=== PATIENT | male | born 1975 | race Caucasian/White ===

== ENCOUNTER 2020-01-21 09:49 | Emergency (ER) | payer BC, SELFPAY ==
[2020-01-21 09:57] VITALS: BP 145/95; PULSE 103; RESP 18; TEMP 36.4; O2SAT 97
--- NOTE | 2020-01-21 10:01 | DI.RAD.S_ITS ---
PROCEDURE: XR CHEST 2V INDICATIONS: SOB, hx asthma TECHNIQUE: 2 views of the chest were acquired. COMPARISON: None. FINDINGS: Surgical changes and devices: None. Lungs and pleura: Lungs are clear. No pleural effusions or pneumothorax. Mediastinum: Mediastinal contours are normal. Heart size is normal. Bones and chest wall: No suspicious bony abnormalities. Soft tissues appear unremarkable. IMPRESSION: No evidence acute pulmonary process. Dictated by: Jesse Solares M.D. on 01/21/2020 at 10:19 Approved by: Jesse Solares M.D. on 01/21/2020 at 10:19
--- NOTE | 2020-01-21 10:03 | ED.CHESTPAIN ---
HPI - Chest Pain General Chief Complaint: Asthma Stated Complaint: mold exposure/chest pain/asthma Time Seen by Provider: 01/21/20 09:50 Source: patient Mode of arrival: Ambulatory Limitations: no limitations History of Present Illness HPI narrative: 44-year-old male nonsmoker with history of asthma presents with difficulty breathing, wheezing and some episodes of anterior chest pressure over the past few days. He states that his home was just evaluated and they found bold and definitive Spore counts which are likely triggering his symptoms. He denies any fever or chills nor runny nose, sore throat or headache. He has had no nausea, vomiting or diarrhea. He has had no rash. He has been using more bronchodilators than normal. The mold in his home is being addressed tomorrow and he will be standing in a hotel until it is taking care. He denies any exposure to persons known or suggested to have COVID-19. The episodes of chest pressure are short induration and have no provocation, palliation or radiation. He denies any cardiac history nor recent travel, history of clots or lower extremity pain or swelling. MD complaint: chest pain Onset (ago): day(s) Duration: intermittent Onset: during rest Pain location: left chest Quality: tightness Pain radiation: none Relieving factors: nothing Exacerbating factors: nothing Associated symptoms: dyspnea Treatments prior to arrival chest pain: none Related Data Home Medications Medication Instructions Recorded Confirmed albuterol sulfate 90 mcg/actuation 2 puff INHALATION SEE INSTRUCTIONS 07/19/19 07/19/19 aerosol inhaler PRN beclomethasone dipropionate 80 See Rx Instructions INHALATION 07/19/19 07/19/19 mcg/actuation aerosol inhaler DAILY inhalation fluticasone furoate 27.5 1 spray NASAL DAILY 07/19/19 07/19/19 mcg/actuation nasal spray,suspension Previous Rx's Medication Instructions Recorded azelastine 137 mcg (0.1 %) nasal 1 spray NASAL BID #30 ml 07/19/19 spray aerosol montelukast 10 mg tablet 10 mg PO BEDTIME #30 tab 07/19/19 propranolol 20 mg tablet See Rx Instructions PO TID PRN #10 07/19/19 tab triamcinolone acetonide 0.1 % 1 applictn TOP DAILY #30 gram 12/30/19 topical ointment prednisone See Rx Instructions .ROUTE 01/21/20 .COMPLEX #30 tab Allergies Allergy/AdvReac Type Severity Reaction Status Date / Time No Known Drug Allergies Allergy Verified 07/19/19 09:38 Review of Systems Constitutional Constitutional: Denies chills, Denies fatigue, Denies fever(s), Denies frequent falls, Denies lethargy and Denies weakness Eyes Eyes: Denies change in vision, Denies eye discharge, Denies irritation and Denies loss of vision ENT Ears, Nose, Mouth, and Throat: Denies change in voice, Denies dizziness, Denies neck pain, Denies sore throat and Denies throat swelling Cardiovascular Cardiovascular: Reports chest pain, Denies irregular heart rhythm, Denies lightheadedness, Denies palpitations, Reports dyspnea, Denies dyspnea on exertion and Denies orthopnea Respiratory Respiratory: Denies cough, Reports dyspnea, Denies dyspnea on exertion and Denies wheezing Gastrointestinal Gastrointestinal: Denies abdominal pain, Denies change in bowel habits, Denies diarrhea, Denies nausea and Denies vomiting Genitourinary Genitourinary: Denies hematuria, Denies flank pain, Denies urinary incontinence and Denies urinary urgency Musculoskeletal Musculoskeletal: Denies back pain, Denies muscle weakness, Denies neck pain, Denies numbness and Denies tingling Integumentary/Breasts Skin/Breast: Denies pruritus, Denies erythema, Denies rash and Denies wounds Neurologic Neurologic: Denies behavioral changes, Denies confusion, Denies dizziness, Denies frequent falls, Denies loss of vision, Denies numbness, Denies tingling and Denies weakness Psychiatric Psychiatric: Denies anxiety, Denies behavioral changes, Denies confusion, Denies depression, Denies homicidal ideation and Denies suicidal ideation Endocrine Endocrine: Denies fatigue, Denies flushing and Denies palpitations Hematologic/Lymphatic Hematologic/Lymphatic: Denies easy bruising Allergic/Immunologic Allergic/Immunologic: Denies urticaria, Denies throat swelling and Denies wheezing Patient History Medical History Anxiety (Chronic) Asthma (Resolved) Eczema (Chronic ~2015) Paroxysmal A-fib (Chronic ~2018) Sleep apnea (Chronic ~2018) Unspecified asthma, uncomplicated (Chronic) Surgical History Anesthesia (Resolved) History of foot surgery (Resolved ~2010) S/P appy (Acute) Family History Grandfather Cancer Grandfather Myocardial infarct History of heart disease Grandmother No problems noted. Family/Other No problems noted. Social History Smoking Status: Never smoker Smoking Status: Never smoker Exam Narrative Exam Narrative: GENERAL: [44] year old patient appears stated age. Well-nourished, well-developed patient, in mild distress. Anxious. HEAD: Atraumatic. Normocephalic. EYES: Pupils equal round and reactive. Extraocular motions intact. No scleral icterus. No injection or drainage. ENT: Nose without bleeding, purulent drainage. Throat without erythema, tonsillar hypertrophy or exudate. Airway patent. NECK: Trachea midline. Non tender CARDIOVASCULAR: Regular rate and rhythm without murmurs, gallops, or rubs. RESPIRATORY: Clear to auscultation. Breath sounds equal bilaterally. No wheezes, rales, or rhonchi. GASTROINTESTINAL: Abdomen soft, non-tender, nondistended. EXTREMITIES: No edema or joint tenderness. BACK: Nontender without deformity or crepitance. No flank tenderness. NEURO: AOx3. SKIN: No rash or erythema of visible areas Initial Vital Signs Initial Vital Signs: Vital Signs Temperature 97.6 F 01/21/20 09:57 Pulse Rate 103 H 01/21/20 09:57 Respiratory Rate 18 01/21/20 09:57 Blood Pressure 145/95 H 01/21/20 09:57 Pulse Oximetry 97 01/21/20 09:57 Course Orders Ordered: ED Orders 01/21/20 10:01 XR chest 2V Stat EKG-12 Lead Stat 01/21/20 10:16 Basic Metabolic Panel Stat Complete Blood Count AUTO DIFF Stat Troponin & CK Cardiac Panel Stat 01/21/20 12:15 Troponin I Stat Discontinued Medications Prednisone (Deltasone) 40 mg PO NOW ONE Stop: 01/21/20 10:01 Last Admin: 01/21/20 10:21 Dose: 40 mg Documented by: NIVIA Vital Signs Vital signs: Vital Signs - 8 hr 01/21/20 09:57 01/21/20 11:13 01/21/20 12:19 Temperature 97.6 F Pulse Rate 103 H 84 72 Respiratory Rate 18 14 18 Blood Pressure 145/95 H Blood Pressure [Right Arm] 121/76 121/76 Pulse Oximetry 97 95 99 MDM - Chest Pain Lab Data Result diagrams: 01/21/20 10:16 01/21/20 10:16 Labs: Lab Results 01/21/20 01/21/20 01/21/20 Range/Units 10:16 10:16 12:15 WBC 6.8 (4.5-11.0) X10^3/uL RBC 5.07 (4.5-5.9) X10^6/uL Hgb 15.0 (13.5-17.5) g/dL Hct 44.5 (41-53) % MCV 87.7 (80-100) fL MCH 29.6 (26-34) PG MCHC 33.7 (30-36) % RDW 13.4 (11.6-14.8) % Plt Count 295 (150-400) X10^3/uL Neut % (Auto) 64.3 (50-75) % Lymph % (Auto) 28.1 (25-40) % [place] % (Auto) 5.9 (3-14) % Eos % (Auto) 0.4 L (2-4) % Baso % (Auto) 1.3 (0-2) % Neut # (Auto) 4400 (8404-6042) /uL Lymph # (Auto) 1900 (0953-5142) /uL [place] # (Auto) 400 (0-900) /uL Eos # (Auto) 0 (0-450) /uL Baso # (Auto) 100 (0-100) /uL Sodium 138 (137-145) mmol/L Potassium 3.9 (3.4-5.1) mmol/L Chloride 104 (98-107) mmol/L Carbon Dioxide 25 (22-32) mmol/L BUN 15 (9-20) mg/dL Creatinine 0.80 (0.66-1.25) mg/dL Estimated GFR > 60.0 (>60) mL/min BUN/Creatinine Ratio 18.8 (6-22) Glucose 112 H (70-100) mg/dL Calcium 9.7 (8.4-10.2) mg/dL Total Creatine Kinase 205 H (55-170) U/L CK-MB (CK-2) 1.04 (<2.37) ng/mL CK-MB (CK-2) Rel Index 0.5 L (1.5-5.0) % Troponin I < 0.012 < 0.012 (0.01-0.034) ng/mL Imaging Data Chest x-ray: Radiologist's Impression: [address] [address] XRay Report Signed Patient: Jules Flores RMR#: [id number] : 1975Acct:[id number] Age/Sex: 44 / MDate of Service: 01/21/20 Loc: ED Accession Number: [id number] Procedure: XR chest 2V Ordering Provider: Sharad Malagon D.O. PROCEDURE: XR CHEST 2V INDICATIONS: SOB, hx asthma TECHNIQUE: 2 views of the chest were acquired. COMPARISON: None. FINDINGS: Surgical changes and devices: None. Lungs and pleura: Lungs are clear. No pleural effusions or pneumothorax. Mediastinum: Mediastinal contours are normal. Heart size is normal. Bones and chest wall: No suspicious bony abnormalities. Soft tissues appear unremarkable. IMPRESSION: No evidence acute pulmonary process. Dictated by: Jesse Solares M.D. on 01/21/2020 at 10:19 Approved by: Jesse Solares M.D. on 01/21/2020 at 10:19 [facility] [place] Narrative Medical decision making narrative: Multiple causes of chest pain considered including NM, PE, pneumothorax, pneumonia, aortic dissection, and pleurisy. Patient reports no radiation, no diaphoresis, no provocation with exertion, and no vomiting Patient's symptoms improved or duration of stay with above-stated therapies. Findings and discharge diagnosis discussed with patient/family followed by verbalization of understanding Return precautions discussed with patient/family whom verbalize understanding. Discharge Plan Departure Patient Disposition: Home Clinical Impression: Atypical chest pain Asthma exacerbation Qualifiers: Asthma severity: mild Asthma persistence: intermittent Qualified Code(s): J45.21 - Mild intermittent asthma with (acute) exacerbation Discharge Date/Time: 01/21/20 13:11 Instructions: DI for Asthma -- Adult Activity Restrictions/Additional Instructions: *You have been diagnosed with [asthma exacerbation, atypical chest pain] *What to do: *Take medications as directed *Follow up with your primary care provider in 2-3 days, call for an appointment. Let them know you were seen in the Emergency Department and that we ask that you be seen in follow up *Return to ER if you should have any new, worsening or concerning symptoms Prescriptions: New prednisone 10 mg tablet See Rx Instructions .ROUTE .COMPLEX Qty: 30 RF: 0 No Action triamcinolone acetonide 0.1 % ointment 1 applictn TOP DAILY Qty: 30 RF: 2 Qvar 80 mcg/actuation aerosol See Rx Instructions inhalation DAILY RF: 0 albuterol sulfate [Proventil HFA] 90 mcg/actuation HFA aerosol inhaler 2 puff inhalation SEE INSTRUCTIONS PRN (Reason: shortness of breath) RF: 0 fluticasone furoate 27.5 mcg/actuation spray,suspension 1 spray NASAL DAILY RF: 0 montelukast 10 mg tablet 10 mg PO BEDTIME Qty: 30 RF: 3 azelastine 137 mcg (0.1 %) aerosol,spray 1 spray NASAL BID Qty: 30 RF: 3 propranolol 20 mg tablet See Rx Instructions PO TID PRN (Reason: anxiety) Qty: 10 RF: 0 Referrals: Viktor Rey MD [Primary Care Provider] -
--- NOTE | 2020-01-21 10:03 | PC.NURSE ---
Patient has had confirmed mold exposure in home, starting remediation in home tomorrow. Patient will be staying in a [place] tonight with family. patient has increased his use of inhalers and nebulizers
[2020-01-21] MEDS: predniSONE 20 MG TABLET 40 MG PO (10:21)
[2020-01-21 10:25] LABS: Add Manual Diff / Slide Review NO; Basophils Absolute Auto 100 /uL (0-100); Basophils Percent Auto 1.3 % (0-2); Eosinophils Absolute Auto 0 /uL (0-450); Eosinophils Percent Auto 0.4 % (2-4); Hematocrit 44.5 % (41-53); Lymphocytes Absolute Auto 1900 /uL (1100-4500); Lymphocytes Percent Auto 28.1 % (25-40); Mean Corpuscular HGB Conc 33.7 % (30-36); Mean Corpuscular Hemoglobin 29.6 PG (26-34); Mean Corpuscular Volume 87.7 fL (80-100); Monocytes Absolute Auto 400 /uL (0-900); Monocytes Percent Auto 5.9 % (3-14); Neutrophils Absolute Auto 4400 /uL (1500-7000); Neutrophils Percent Auto 64.3 % (50-75); Platelet Count 295 X10^3/uL (150-400); Red Blood Cell Count 5.07 X10^6/uL (4.5-5.9); Red Cell Distribution Width 13.4 % (11.6-14.8); White Blood Cell Count 6.8 X10^3/uL (4.5-11.0)
[2020-01-21 11:04] LABS: BUN Creatinine Ratio 18.8 (6-22); Blood Urea Nitrogen 15 mg/dL (9-20); Calcium 9.7 mg/dL (8.4-10.2); Carbon Dioxide 25 mmol/L (22-32); Chloride 104 mmol/L (98-107); Creatine Kinase 205 U/L (55-170); Estimated Glomerular Filt Rate > 60.0 mL/min (>60); Glucose 112 mg/dL (70-100); HEMOLYSIS < 15 (0-50); Potassium 3.9 mmol/L (3.4-5.1); Sodium 138 mmol/L (137-145)
[2020-01-21 11:13] VITALS: BP 121/76; PULSE 84; RESP 14; O2SAT 95
[2020-01-21 11:16] LABS: Troponin I < 0.012 ng/mL (0.01-0.034)
[2020-01-21 11:19] LABS: CKMB % Relative Index 0.5 % (1.5-5.0); Creatine Kinase MB 1.04 ng/mL (<2.37)
[2020-01-21 12:19] VITALS: BP 121/76; PULSE 72; RESP 18; O2SAT 99
[2020-01-21 12:50] LABS: Troponin I < 0.012 ng/mL (0.01-0.034)
== END 2020-01-21 13:11 | disposition home or self-care (01) ==
PROVIDERS: Emergency Provider Emergency Medicine; PCP Internal Medicine
DX: R07.89 Other chest pain (principal); J45.21 Mild intermittent asthma with (acute) exacerbation
CPT/HCPCS: 36415; 71046; 80048; 82550; 82553; 84484; 85025; 93005; 99284

== ENCOUNTER 2020-06-22 09:31 | Emergency (ER) | payer BC, SELFPAY ==
[2020-06-22 09:35] VITALS: BP 135/81; PULSE 170; RESP 24; TEMP 36.6; O2SAT 100
[2020-06-22 09:37] VITALS: PULSE 169; RESP 19; O2SAT 100
[2020-06-22 09:43] VITALS: BP 116/68; PULSE 89; RESP 23; O2SAT 100
[2020-06-22 09:45] VITALS: BP 113/66; PULSE 96; RESP 21; O2SAT 99
--- NOTE | 2020-06-22 09:48 | DI.RAD.S_ITS ---
PROCEDURE: XR CHEST 1V INDICATIONS: chest pain TECHNIQUE: One view of the chest was acquired. COMPARISON: [facility], CR, XR CHEST 2V, 01/21/2020, 9:02. FINDINGS: Surgical changes and devices: None. Lungs and pleura: On this semiupright portable chest examination, no large pneumothorax or large pleural effusions are seen. No focal infiltrates are seen. Mediastinum: Mediastinal contours appear normal. Heart size is normal. Bones and chest wall: No suspicious bony lesions. Overlying soft tissues appear unremarkable. IMPRESSION: Portable chest within normal limits. Dictated by: Juan Jose Will M.D. on 06/22/2020 at 9:14 Approved by: Juan Jose Will M.D. on 06/22/2020 at 9:14
[2020-06-22 09:53] LABS: Add Manual Diff / Slide Review NO; Basophils Absolute Auto 0 /uL (0-100); Basophils Percent Auto 0.5 % (0-2); Eosinophils Absolute Auto 200 /uL (0-450); Eosinophils Percent Auto 1.9 % (2-4); Hematocrit 44.7 % (41-53); Hemoglobin 15.1 g/dL (13.5-17.5); Lymphocytes Absolute Auto 3200 /uL (1100-4500); Lymphocytes Percent Auto 33.4 % (25-40); Mean Corpuscular HGB Conc 33.8 % (30-36); Mean Corpuscular Hemoglobin 29.6 PG (26-34); Mean Corpuscular Volume 87.6 fL (80-100); Monocytes Absolute Auto 700 /uL (0-900); Monocytes Percent Auto 7.7 % (3-14); Neutrophils Absolute Auto 5400 /uL (1500-7000); Neutrophils Percent Auto 56.5 % (50-75); Platelet Count 309 X10^3/uL (150-400); Red Cell Distribution Width 13.5 % (11.6-14.8); White Blood Cell Count 9.5 X10^3/uL (4.5-11.0)
--- NOTE | 2020-06-22 09:57 | ED_ITS ---
HPI - Arrhythmia/Palpitations General Chief Complaint: Arrhythmia/Palpitations Stated Complaint: afib emergency Time Seen by Provider: 06/22/20 09:37 Source: patient Mode of arrival: Ambulatory Limitations: no limitations History of Present Illness HPI narrative: Patient is a 45-year-old male who presents with heart palpitations. He has history of atrial fibrillation and was cardioverted 2 years ago. Today he started feeling palpitations about 915 and came to the ER for evaluation he appears to be in SVT on the monitor with a heart rate at 167. He denies any shortness of breath dizziness or lightheadedness Related Data Home Medications Medication Instructions Recorded Confirmed albuterol sulfate 90 mcg/actuation 2 puff INHALATION SEE INSTRUCTIONS 07/19/19 07/19/19 aerosol inhaler PRN beclomethasone dipropionate 80 See Rx Instructions INHALATION 07/19/19 07/19/19 mcg/actuation aerosol inhaler DAILY inhalation fluticasone furoate 27.5 1 spray NASAL DAILY 07/19/19 07/19/19 mcg/actuation nasal spray,suspension Previous Rx's Medication Instructions Recorded azelastine 137 mcg (0.1 %) nasal 1 spray NASAL BID #30 ml 07/19/19 spray aerosol montelukast 10 mg tablet 10 mg PO BEDTIME #30 tab 07/19/19 propranolol 20 mg tablet See Rx Instructions PO TID PRN #10 07/19/19 tab triamcinolone acetonide 0.1 % 1 applictn TOP DAILY #30 gram 12/30/19 topical ointment prednisone See Rx Instructions .ROUTE 01/21/20 .COMPLEX #30 tab Allergies Allergy/AdvReac Type Severity Reaction Status Date / Time No Known Drug Allergies Allergy Verified 07/19/19 09:38 Review of Systems Review of Systems Narrative: GENERAL: Denies chills, fatigue, malaise, fever, sweats, travel HEENT: Denies sinus pain, ear pain, sore throat, difficulty swallowing, neck pain RESPIRATORY: Denies dyspnea, cough, wheezing, hemoptysis, sputum. CARDIOVASCULAR: See HPI GASTROINTESTINAL: Denies nausea, vomiting, abdominal pain, diarrhea, constipation, melena. : Denies dysuria, frequency, incontinence, hematuria, urinary retention, flank pain. MUSCULOSKELETAL: Denies weakness, joint pain, or bony pain SKIN: No rash, no erythema, no pruritus NEUROLOGIC: Denies weakness, dizziness, headache, numbness, change in speech, confusion PSYCHIATRIC: No concerning psychosocial issues. 12 point review of systems is negative except for those stated above and HPI Patient History Medical History (Updated 06/22/20 @ 10:16 by Mahsa Delatorre DO) Anxiety (Chronic) Asthma (Resolved) Eczema (Chronic ~2015) Paroxysmal A-fib (Chronic ~2018) Sleep apnea (Chronic ~2018) Unspecified asthma, uncomplicated (Chronic) Surgical History Anesthesia (Resolved) History of foot surgery (Resolved ~2010) S/P appy (Acute) Family History Grandfather Cancer Grandfather Myocardial infarct History of heart disease Grandmother No problems noted. Family/Other No problems noted. Social History Smoking Status: Never smoker Smoking Status: Never smoker Substance Use Type: does not use Exam Initial Vital Signs Initial Vital Signs: Vital Signs Temperature 97.9 F 06/22/20 09:35 Pulse Rate 170 H 06/22/20 09:35 Respiratory Rate 24 06/22/20 09:35 Blood Pressure 135/81 06/22/20 09:35 Pulse Oximetry 100 06/22/20 09:35 GENERAL: Well-appearing, well-nourished and in no acute distress. HEENT: Head atraumatic,EOMI, pupils reactive, face symmetric, moist mucous membranes CARDIOVASCULAR: Tachycardic regular no murmur RESPIRATORY: Breath sounds equal bilaterally, no wheezes rales or rhonchi. ABDOMEN: Soft, nontender. Normoactive bowel sounds all 4 quadrants. No guarding or rebound. EXTREMITIES: Normal range of motion, no clubbing or edema. Neurovascularly intact NEUROLOGICAL: Alert and oriented x4.Normal gait and speech. SKIN: Warm, dry, no laceration, no petechiae, no rashes or lesions. Course Orders Ordered: ED Orders 06/22/20 09:44 Complete Blood Count AUTO DIFF Stat Comprehensive Metabolic Panel Stat Magnesium Stat Troponin & CK Cardiac Panel Stat 06/22/20 09:48 XR chest 1V Stat EKG-12 Lead Stat Vital Signs Vital signs: Vital Signs - 8 hr 06/22/20 09:35 06/22/20 09:37 06/22/20 09:43 Temperature 97.9 F Pulse Rate 170 H 169 H 89 Respiratory Rate 24 19 23 Blood Pressure 135/81 116/68 Pulse Oximetry 100 100 100 06/22/20 09:45 06/22/20 10:00 06/22/20 10:15 Temperature Pulse Rate 96 H 87 90 Respiratory Rate 21 20 21 Blood Pressure 113/66 110/68 Pulse Oximetry 99 95 96 MDM - Arrhythmia/Palpitations Lab Data Attestation: I reviewed the patient's lab results. Result diagrams: 06/22/20 09:44 06/22/20 09:44 Labs: Lab Results 06/22/20 06/22/20 Range/Units 09:44 09:44 WBC 9.5 (4.5-11.0) X10^3/uL RBC 5.10 (4.5-5.9) X10^6/uL Hgb 15.1 (13.5-17.5) g/dL Hct 44.7 (41-53) % MCV 87.6 (80-100) fL MCH 29.6 (26-34) PG MCHC 33.8 (30-36) % RDW 13.5 (11.6-14.8) % Plt Count 309 (150-400) X10^3/uL Neut % (Auto) 56.5 (50-75) % Lymph % (Auto) 33.4 (25-40) % [place] % (Auto) 7.7 (3-14) % Eos % (Auto) 1.9 L (2-4) % Baso % (Auto) 0.5 (0-2) % Neut # (Auto) 5400 (2881-4740) /uL Lymph # (Auto) 3200 (7337-8650) /uL [place] # (Auto) 700 (0-900) /uL Eos # (Auto) 200 (0-450) /uL Baso # (Auto) 0 (0-100) /uL Sodium 138 (137-145) mmol/L Potassium 4.2 (3.4-5.1) mmol/L Chloride 103 (98-107) mmol/L Carbon Dioxide 29 (22-32) mmol/L BUN 13 (9-20) mg/dL Creatinine 0.86 (0.66-1.25) mg/dL Estimated GFR > 60.0 (>60) mL/min BUN/Creatinine Ratio 15.1 (6-22) Glucose 107 H (70-100) mg/dL Calcium 9.6 (8.4-10.2) mg/dL Magnesium 2.0 (1.6-2.3) mg/dL Total Bilirubin 0.5 (0.2-1.3) mg/dL AST 37 (17-59) IU/L ALT 41 (<50) IU/L Alkaline Phosphatase 63 (38-126) U/L Total Creatine Kinase 247 H (55-170) U/L CK-MB (CK-2) 0.83 (<2.37) ng/mL CK-MB (CK-2) Rel Index 0.3 L (1.5-5.0) % Troponin I < 0.012 (0.01-0.034) ng/mL Total Protein 8.3 H (6.3-8.2) g/dL Albumin 4.8 (3.5-5.0) g/dL Globulin 3.5 (1.7-4.1) g/dL Albumin/Globulin Ratio 1.4 (1.0-2.8) ECG Data Attestation: I personally reviewed and interpreted this ECG as follows: Prior ECG tracings: available for review Interpretation: Normal sinus rhythm rate 90 p.r. interval 177, QRS [address] changes to previous EKG in 2017 MDM Narrative Medical decision making narrative: The patient responded well to Valsalva maneuver and he converted immediately and remained in normal sinus rhythm well in the ED. He is requesting referral to psychiatric specialist. I recommend he talk with his PCP 1st I actually has not had any episodes for 2 years. Discharge Plan Departure Patient Disposition: Home Clinical Impression: Nonsustained paroxysmal supraventricular tachycardia Discharge Date/Time: 06/22/20 10:48 Instructions: DI for Paroxysmal Supraventricular Tachycardia Activity Restrictions/Additional Instructions: *You have been diagnosed with SVT *What to do: If you continue to have episodes of SVT may require an ablation. *Continue to take medications as directed *Follow up with your primary care provider in 2-3 days *Return to ER if you should have increased heart palpitations, chest pain s hortness of breath or any new, worsening or concerning symptoms Prescriptions: No Action triamcinolone acetonide 0.1 % ointment 1 applictn TOP DAILY Qty: 30 RF: 2 Qvar 80 mcg/actuation aerosol See Rx Instructions inhalation DAILY RF: 0 albuterol sulfate [Proventil HFA] 90 mcg/actuation HFA aerosol inhaler 2 puff inhalation SEE INSTRUCTIONS PRN (Reason: shortness of breath) RF: 0 fluticasone furoate 27.5 mcg/actuation spray,suspension 1 spray NASAL DAILY RF: 0 montelukast 10 mg tablet 10 mg PO BEDTIME Qty: 30 RF: 3 azelastine 137 mcg (0.1 %) aerosol,spray 1 spray NASAL BID Qty: 30 RF: 3 propranolol 20 mg tablet See Rx Instructions PO TID PRN (Reason: anxiety) Qty: 10 RF: 0 prednisone 10 mg tablet See Rx Instructions .ROUTE .COMPLEX Qty: 30 RF: 0 Referrals: Kevin Lawson MD [Physician] - Viktor Rey MD [Primary Care Provider] -
--- NOTE | 2020-06-22 09:57 | PC.NURSE ---
@ 8430 performed vagal manuever w/ blowing into empty syringe then lifting legs w/ Dr. Delatorre present. SVT to SR w/o ectopy.
[2020-06-22 10:00] VITALS: PULSE 87; RESP 20; O2SAT 95
[2020-06-22 10:01] LABS: Alanine Aminotransferase 41 IU/L (<50); Albumin 4.8 g/dL (3.5-5.0); Albumin Globulin Ratio 1.4 (1.0-2.8); Alkaline Phosphatase 63 U/L (38-126); Aspartate Aminotransferase 37 IU/L (17-59); BUN Creatinine Ratio 15.1 (6-22); Bilirubin Total 0.5 mg/dL (0.2-1.3); Blood Urea Nitrogen 13 mg/dL (9-20); Calcium 9.6 mg/dL (8.4-10.2); Carbon Dioxide 29 mmol/L (22-32); Chloride 103 mmol/L (98-107); Creatine Kinase 247 U/L (55-170); Estimated Glomerular Filt Rate > 60.0 mL/min (>60); Globulin 3.5 g/dL (1.7-4.1); Glucose 107 mg/dL (70-100); Potassium 4.2 mmol/L (3.4-5.1); Sodium 138 mmol/L (137-145); Total Protein 8.3 g/dL (6.3-8.2)
[2020-06-22 10:13] LABS: Troponin I < 0.012 ng/mL (0.01-0.034)
[2020-06-22 10:15] VITALS: BP 110/68; PULSE 90; RESP 21; O2SAT 96
[2020-06-22 10:16] LABS: CKMB % Relative Index 0.3 % (1.5-5.0); Creatine Kinase MB 0.83 ng/mL (<2.37); HEMOLYSIS 41 (0-50)
== END 2020-06-22 10:48 | disposition home or self-care (01) ==
PROVIDERS: Emergency Provider Emergency Medicine; PCP Internal Medicine
DX: I47.1 Supraventricular tachycardia (principal)
CPT/HCPCS: 36415; 71045; 80053; 82550; 82553; 83735; 84484; 85025; 93005; 93010; 99284

== ENCOUNTER 2020-08-18 17:11 | Emergency (ER) | payer BC, SELFPAY ==
[2020-08-18] VITALS (25 sets, daily range): BP systolic 112–142; BP diastolic 74–105; PULSE 83–149; RESP 10–40; TEMP 36.8; O2SAT 93–99; BMI 27.8
--- NOTE | 2020-08-18 17:22 | DI.RAD.S_ITS ---
PROCEDURE: XR CHEST 1V INDICATIONS: chest pain TECHNIQUE: One view of the chest was acquired. COMPARISON: [facility], CR, XR CHEST 2V, 01/21/2020, 9:02. [facility], CR, XR CHEST 1V, 06/22/2020, 10:01. FINDINGS: Surgical changes and devices: None. Lungs and pleura: Lungs are clear. No pleural effusions or pneumothorax. Mediastinum: Mediastinal contours appear normal. Heart size is normal. Bones and chest wall: No suspicious bony lesions. Overlying soft tissues appear unremarkable. IMPRESSION: Unremarkable portable chest. Dictated by: Juan Jose Will M.D. on 08/18/2020 at 16:41 Approved by: Juan Jose Will M.D. on 08/18/2020 at 16:42
[2020-08-18 17:47] LABS: Add Manual Diff / Slide Review NO; Basophils Absolute Auto 100 /uL (0-100); Basophils Percent Auto 1.1 % (0-2); Eosinophils Absolute Auto 200 /uL (0-450); Hematocrit 42.4 % (41-53); Hemoglobin 14.6 g/dL (13.5-17.5); Lymphocytes Absolute Auto 2600 /uL (1100-4500); Lymphocytes Percent Auto 33.6 % (25-40); Mean Corpuscular HGB Conc 34.3 % (30-36); Mean Corpuscular Hemoglobin 29.8 PG (26-34); Mean Corpuscular Volume 86.8 fL (80-100); Monocytes Absolute Auto 500 /uL (0-900); Monocytes Percent Auto 6.7 % (3-14); Neutrophils Absolute Auto 4500 /uL (1500-7000); Neutrophils Percent Auto 56.6 % (50-75); Platelet Count 281 X10^3/uL (150-400); Red Blood Cell Count 4.89 X10^6/uL (4.5-5.9); Red Cell Distribution Width 13.6 % (11.6-14.8); White Blood Cell Count 7.9 X10^3/uL (4.5-11.0)
[2020-08-18 17:54] LABS: INR 0.9 (0.9-1.3); Prothrombin Time 10.7 SECONDS (10.1-12.7)
[2020-08-18 17:56] LABS: PTT Partial Thromboplastin Tim 30 SECONDS (26.4-36.2)
[2020-08-18 17:58] LABS: Alanine Aminotransferase 38 IU/L (<50); Albumin 4.7 g/dL (3.5-5.0); Albumin Globulin Ratio 1.4 (1.0-2.8); Alkaline Phosphatase 62 U/L (38-126); Aspartate Aminotransferase 31 IU/L (17-59); BUN Creatinine Ratio 22.2 (6-22); Bilirubin Total 0.3 mg/dL (0.2-1.3); Blood Urea Nitrogen 20 mg/dL (9-20); Calcium 9.4 mg/dL (8.4-10.2); Carbon Dioxide 28 mmol/L (22-32); Chloride 104 mmol/L (98-107); Creatine Kinase 168 U/L (55-170); Estimated Glomerular Filt Rate > 60.0 mL/min (>60); Globulin 3.3 g/dL (1.7-4.1); Glucose 113 mg/dL (70-100); HEMOLYSIS 15 (0-50); Lipase 119 U/L (23-300); Potassium 3.7 mmol/L (3.4-5.1); Sodium 138 mmol/L (137-145)
[2020-08-18 18:09] LABS: Troponin I < 0.012 ng/mL (0.01-0.034)
[2020-08-18 18:13] LABS: CKMB % Relative Index 0.4 % (1.5-5.0); Creatine Kinase MB 0.61 ng/mL (<2.37)
--- NOTE | 2020-08-18 18:23 | ED.ARRPALP ---
HPI - Arrhythmia/Palpitations General Chief Complaint: Arrhythmia/Palpitations Stated Complaint: DIZZY, THINKS IN A-FIB Time Seen by Provider: 08/18/20 18:01 Source: patient Mode of arrival: Ambulatory Limitations: no limitations History of Present Illness HPI narrative: Patient is an otherwise healthy 45-year-old male here for evaluation of what he thinks is atrial fibrillation. He states that he has had 1 prior episode of atrial fibrillation in past. Is approximately 1 year ago. Was seen in the emergency department had a cardioversion. Has an appointment scheduled with Cardiology later this week because since that visit to the emergency department 1 year ago has had multiple other episodes of fast heart rate that have spontaneously resolved on their own. The episode the brings him to the emergency department today started late this afternoon. Describes feeling somewhat lightheaded. No chest pain. Related Data Home Medications Medication Instructions Recorded Confirmed albuterol sulfate 90 mcg/actuation 2 puff INHALATION SEE INSTRUCTIONS 07/19/19 07/03/20 aerosol inhaler PRN fluticasone furoate 27.5 1 spray NASAL DAILY 07/19/19 07/03/20 mcg/actuation nasal spray,suspension Previous Rx's Medication Instructions Recorded propranolol 20 mg tablet See Rx Instructions PO TID PRN #10 07/19/19 tab triamcinolone acetonide 0.1 % 1 applictn TOP DAILY #30 gram 12/30/19 topical ointment azelastine 137 mcg (0.1 %) nasal 1 spray NASAL BID #90 ml 07/03/20 spray aerosol beclomethasone dipropionate 80 2 inhalation INHALATION BID #31.8 07/03/20 mcg/actuation HFA breath activated gram aerosol rivaroxaban [Xarelto] 20 mg PO DAILY #30 tab 08/18/20 Allergies Allergy/AdvReac Type Severity Reaction Status Date / Time No Known Drug Allergies Allergy Verified 07/19/19 09:38 Review of Systems Constitutional Constitutional: Denies headache(s) ENT Ears, Nose, Mouth, and Throat: Denies vertigo, Reports dizziness and Denies headache(s) Cardiovascular Cardiovascular: Denies chest pain, Reports rapid heart rate, Reports irregular heart rhythm and Denies dyspnea Respiratory Respiratory: Denies dyspnea Gastrointestinal Gastrointestinal: Denies abdominal pain, Denies nausea and Denies vomiting Genitourinary Genitourinary: Denies dysuria Genitourinary: Denies dysuria Musculoskeletal Musculoskeletal: Denies arthralgias and Denies myalgias Integumentary/Breasts Skin/Breast: Denies lesions and Denies rash Neurologic Neurologic: Denies behavioral changes, Denies vertigo, Reports dizziness and Denies headache(s) Psychiatric Psychiatric: Denies behavioral changes Hematologic/Lymphatic Hematologic/Lymphatic: Denies easy bleeding and Denies easy bruising Allergic/Immunologic Allergic/Immunologic: Denies urticaria Patient History Medical History Anxiety (Chronic) Asthma (Resolved) Eczema (Chronic ~2015) Paroxysmal A-fib (Chronic ~2017) Sleep apnea (Chronic ~2017) Unspecified asthma, uncomplicated (Chronic) Surgical History Anesthesia (Resolved) History of foot surgery (Resolved ~2010) S/P appy (Acute) Family History Grandfather Cancer Grandfather Myocardial infarct History of heart disease Grandmother No problems noted. Family/Other No problems noted. Social History Smoking Status: Never smoker Smoking Status: Never smoker Substance Use Type: does not use Exam Initial Vital Signs Initial Vital Signs: Vital Signs Temperature 98.2 F 08/18/20 17:15 Pulse Rate 116 H 08/18/20 17:15 Respiratory Rate 16 08/18/20 17:15 Blood Pressure 138/89 08/18/20 17:15 Pulse Oximetry 97 08/18/20 17:15 Const General: cooperative and comfortable Limitations: mental status not altered [facility] Head: normal to inspection and normocephalic Resp Effort & Inspection: normal respiratory effort Auscultation: clear to auscultation bilaterally Cardio Rate: tachycardic Rhythm: abnormal rhythm Pulses: radial pulses present GI Inspection: non-distended Palpation: soft Skin Lesions: no lesions Rashes: no rashes Neuro General: patient alert and patient awake Cognition: normal cognition Speech: speech normal Extrem General: normal to inspection and capillary refill normal Psych Appearance: grossly normal and well kempt Procedures Cardioversion Consent Signed: Yes Indication: AFib with RVR Stability: Stable Number of attempts (shocks): 1 Joules used: 150 Cardiac rhythm post-cardioversion: Sinus rhythm Procedural Sedation Consent signed: Yes Time out performed: Yes Indication: cardioversion Presedation Evaluation: see note ASA Class: II Mallampati Airway Classification: Class I Preparation: print shop helper applied, pulse oximeter, capnometry used and supplemental O2 applied Fentanyl: IV Fentanyl dose (mcg): 50 IV Propofol dose (mg): 100 ED Sedation Level: Minimal Patient Tolerated Procedure: Well and No complications Complications: none Scores GCS Radha coma scale eye opening: Spontaneous Rossiter coma scale verbal response: Orientated Radha coma scale motor response: Obey commands Radha coma scale total score: 15 Course Orders Ordered: ED Orders 08/18/20 17:22 XR chest 1V Stat EKG-12 Lead Stat 08/18/20 17:37 Complete Blood Count AUTO DIFF Stat Comprehensive Metabolic Panel Stat Lipase Stat Partial Thromboplastin Time Stat Prothrombin Time INR Stat Troponin & CK Cardiac Panel Stat 08/18/20 18:24 RT Consult Eval and Treat Now 08/18/20 19:05 EKG-12 Lead Stat Discontinued Medications Fentanyl (Sublimaze) 50 mcg IV NOW ONE Stop: 08/18/20 18:25 Last Admin: 08/18/20 18:53 Dose: 50 mcg Documented by: ADRIEN Sodium Chloride (Normal Saline 0.9%) 1,000 mls @ 500 mls/hr IV BOLUS ONE Stop: 08/18/20 21:02 Last Infusion: 08/18/20 19:36 Dose: 0 mls/hr Documented by: Admin: 08/18/20 19:11 Dose: 500 mls/hr Documented by: ADRIEN Propofol (Diprivan) 100 mg IV NOW ONE Stop: 08/18/20 18:25 Last Admin: 08/18/20 18:59 Dose: 100 mg Documented by: ADRIEN Rivaroxaban (Xarelto) 20 mg PO NOW ONE Stop: 08/18/20 19:12 Last Admin: 08/18/20 19:52 Dose: 20 mg Documented by: ANDREW Vital Signs Vital signs: Vital Signs - 8 hr 08/18/20 17:15 08/18/20 17:38 08/18/20 18:00 Temperature 98.2 F Pulse Rate 116 H 116 H 120 H Respiratory Rate 16 29 H 19 Blood Pressure 138/89 112/77 Pulse Oximetry 97 97 96 08/18/20 18:30 08/18/20 18:35 08/18/20 18:40 Temperature Pulse Rate 122 H 130 H 137 H Respiratory Rate 15 40 H 24 Blood Pressure 135/84 Pulse Oximetry 98 97 98 08/18/20 18:45 08/18/20 18:50 08/18/20 18:52 Temperature Pulse Rate 129 H 143 H 138 H Respiratory Rate 20 14 14 Blood Pressure 133/94 H Pulse Oximetry 95 97 94 08/18/20 18:55 08/18/20 18:59 08/18/20 19:00 Temperature Pulse Rate 149 H 95 H Respiratory Rate 10 L 16 Blood Pressure 142/105 H 133/77 Pulse Oximetry 98 99 95 08/18/20 19:05 08/18/20 19:10 08/18/20 19:11 Temperature Pulse Rate 93 H 89 90 Respiratory Rate 15 18 Blood Pressure 118/74 124/82 Pulse Oximetry 99 97 97 08/18/20 19:15 08/18/20 19:19 08/18/20 19:20 Temperature Pulse Rate 84 86 83 Respiratory Rate 20 17 19 Blood Pressure 118/79 122/78 Pulse Oximetry 97 97 97 08/18/20 19:24 08/18/20 19:25 08/18/20 19:29 Temperature Pulse Rate 84 84 83 Respiratory Rate 21 25 H 27 H Blood Pressure 124/79 Pulse Oximetry 98 98 98 08/18/20 19:30 08/18/20 19:35 08/18/20 19:40 Temperature Pulse Rate 84 86 84 Respiratory Rate 20 16 20 Blood Pressure 124/79 112/80 115/78 Pulse Oximetry 98 95 93 08/18/20 19:45 Temperature Pulse Rate 83 Respiratory Rate 20 Blood Pressure 119/80 Pulse Oximetry 96 MDM - Arrhythmia/Palpitations Medical Records Attestation: I reviewed the patient's medical records. Lab Data Attestation: I reviewed the patient's lab results. Result diagrams: 08/18/20 17:37 08/18/20 17:37 Labs: Lab Results 08/18/20 08/18/20 08/18/20 Range/Units 17:37 17:37 17:37 WBC 7.9 (4.5-11.0) X10^3/uL RBC 4.89 (4.5-5.9) X10^6/uL Hgb 14.6 (13.5-17.5) g/dL Hct 42.4 (41-53) % MCV 86.8 (80-100) fL MCH 29.8 (26-34) PG MCHC 34.3 (30-36) % RDW 13.6 (11.6-14.8) % Plt Count 281 (150-400) X10^3/uL Neut % (Auto) 56.6 (50-75) % Lymph % (Auto) 33.6 (25-40) % [place] % (Auto) 6.7 (3-14) % Eos % (Auto) 2.0 (2-4) % Baso % (Auto) 1.1 (0-2) % Neut # (Auto) 4500 (6441-2412) /uL Lymph # (Auto) 2600 (4211-0678) /uL [place] # (Auto) 500 (0-900) /uL Eos # (Auto) 200 (0-450) /uL Baso # (Auto) 100 (0-100) /uL PT 10.7 (10.1-12.7) SECONDS INR 0.9 (0.9-1.3) APTT 30 (26.4-36.2) SECONDS Sodium 138 (137-145) mmol/L Potassium 3.7 (3.4-5.1) mmol/L Chloride 104 (98-107) mmol/L Carbon Dioxide 28 (22-32) mmol/L BUN 20 (9-20) mg/dL Creatinine 0.90 (0.66-1.25) mg/dL Estimated GFR > 60.0 (>60) mL/min BUN/Creatinine Ratio 22.2 H (6-22) Glucose 113 H (70-100) mg/dL Calcium 9.4 (8.4-10.2) mg/dL Total Bilirubin 0.3 (0.2-1.3) mg/dL AST 31 (17-59) IU/L ALT 38 (<50) IU/L Alkaline Phosphatase 62 (38-126) U/L Total Creatine Kinase 168 (55-170) U/L CK-MB (CK-2) 0.61 (<2.37) ng/mL CK-MB (CK-2) Rel Index 0.4 L (1.5-5.0) % Troponin I < 0.012 (0.01-0.034) ng/mL Total Protein 8.0 (6.3-8.2) g/dL Albumin 4.7 (3.5-5.0) g/dL Globulin 3.3 (1.7-4.1) g/dL Albumin/Globulin Ratio 1.4 (1.0-2.8) Lipase 119 (23-300) U/L Imaging Data Chest x-ray: Radiologist's Impresson: [address] [address] XRay Report Signed Patient: Jules Flores RMR#: [id number] : 1975Acct:[id number] Age/Sex: 45 / MDate of Service: 08/18/20 Loc: ED Accession Number: [id number] Procedure: XR chest 1V Ordering Provider: Derick Marshall MD PROCEDURE: XR CHEST 1V INDICATIONS: chest pain TECHNIQUE: One view of the chest was acquired. COMPARISON: [facility], CR, XR CHEST 2V, 01/21/2020, 9:02. [facility], CR, XR CHEST 1V, 06/22/2020, 10:01. FINDINGS: Surgical changes and devices: None. Lungs and pleura: Lungs are clear. No pleural effusions or pneumothorax. Mediastinum: Mediastinal contours appear normal. Heart size is normal. Bones and chest wall: No suspicious bony lesions. Overlying soft tissues appear unremarkable. IMPRESSION: Unremarkable portable chest. Dictated by: Juan Jose Will M.D. on 08/18/2020 at 16:41 Approved by: Juan Jose Will M.D. on 08/18/2020 at 16:42 ECG Data Attestation: I personally reviewed and interpreted this ECG as follows: Prior ECG tracings: not available for review Interpretation: If him Ventricular rate 118 Normal axis Normal QRS Normal QTC No ST T wave changes Post cardioversion EKG Sinus rhythm Ventricular rate of 91 Normal axis Normal QRS Normal QTC No ST T wave changes MDM Narrative Medical decision making narrative: Patient is otherwise healthy male with a history of paroxysmal atrial fibrillation who is here in the emergency department with atrial fibrillation with a fast heart rate and some lightheadedness associated with this. His labs are unremarkable. Patient's symptoms had a fairly definitive onset earlier this afternoon. Patient is not unstable. Had discussion with him regarding his options to include rate control versus rhythm control and what this entailed for each of these. After this discussion the patient opted for rhythm control and sedation and cardioversion. Consent was signed. He was sedated and cardioverted as described above without complication. Successful with 1 attempt. Afterwards patient was given Xarelto. Sent home with a prescription for this. He artery has an appointment with Cardiology later this week to discuss his symptoms that he has been having off and on. He was given return precautions and follow-up instructions. Was discharged after recovering from sedation. Discharge Plan Departure Patient Disposition: Home Clinical Impression: Atrial fibrillation Qualifiers: Atrial fibrillation type: paroxysmal Qualified Code(s): I48.0 - Paroxysmal atrial fibrillation Discharge Date/Time: 08/18/20 20:07 Instructions: DI for Atrial Fibrillation Activity Restrictions/Additional Instructions: Start taking the Xarelto as directed tomorrow. There was electronically transmitted to [facility] here in [place]. Keep your scheduled appointment with Cardiology on . Return to the emergency department for any new or worsening symptoms Prescriptions: New Xarelto 20 mg tablet 20 mg PO DAILY Qty: 30 RF: 0 No Action triamcinolone acetonide 0.1 % ointment 1 applictn TOP DAILY Qty: 30 RF: 2 albuterol sulfate [Proventil HFA] 90 mcg/actuation HFA aerosol inhaler 2 puff inhalation SEE INSTRUCTIONS PRN (Reason: shortness of breath) RF: 0 fluticasone furoate 27.5 mcg/actuation spray,suspension 1 spray NASAL DAILY RF: 0 propranolol 20 mg tablet See Rx Instructions PO TID PRN (Reason: anxiety) Qty: 10 RF: 0 Qvar RediHaler 80 mcg/actuation HFA aerosol breath activated 2 inhalation INHALATION BID Qty: 31.8 RF: 3 azelastine 137 mcg (0.1 %) aerosol,spray 1 spray NASAL BID Qty: 90 RF: 3 Referrals: Viktor Rey MD [Primary Care Provider] - Stand Alone Forms: Work Release Note
[2020-08-18] MEDS: fentaNYL 100 MCG/2 ML INJ 50 MCG IV (18:53)
[2020-08-18] MEDS: propofoL 200 MG/20 ML VIAL 100 MG IV (18:59)
[2020-08-18] MEDS: SODIUM CHLORIDE 0.9% 1,000 ML 500 ML IV (19:11)
[2020-08-18] MEDS: RIVAROXABAN 10 MG TABLET 20 MG PO (19:52)
--- NOTE | 2020-09-23 10:55 | PC.NURSE ---
pt received 300ML NS IV during procedural sedation on 08/18/2020.
== END 2020-08-18 20:07 | disposition home or self-care (01) ==
PROVIDERS: Emergency Medicine; Emergency Provider Emergency Medicine; PCP Internal Medicine
DX: I48.0 Paroxysmal atrial fibrillation (principal)
CPT/HCPCS: 36415; 71045; 80053; 82550; 82553; 83690; 84484; 85025; 85610; 85730; 92960; 93005; 99152; 99153; 99285; 99291; J2704; J3010

== ENCOUNTER → 2020-08-30 14:12 | Outpatient (CLI) | payer BC, SELFPAY ==
[2020-08-31 11:10] LABS: COVID19 -Nasal RAPID Negative (Negative)
== END ==
PROVIDERS: PCP Internal Medicine; Visit Provider Physician Assistant
DX: Z11.59 Encounter for screening for other viral diseases (principal)
CPT/HCPCS: 87635

== ENCOUNTER → 2020-09-02 15:02 | Outpatient (CLI) | payer BC, SELFPAY ==
--- NOTE | 2020-09-02 | DI.NM.S_ITS ---
PROCEDURE: NM EXERCISE TREADMILL NON NUC COMPARISON: None. INDICATIONS: Atrial fibrillation FINDINGS: patient exercised for 10 minutes and 40 seconds reaching 12.8 METs, WIL +9%. 88% of maximum predicted heart rate reached. Appropriate BP response to exercise (resting BP 116/72mmHg, max BP 150/75mmHg). No chest pain with exercise. Resting ECG shows sinus rhythm. No ST-T changes with exercise or during recovery. Rare PACs with exercise. IMPRESSION: Low risk, normal treadmill ECG only stress test 1) No ECG evidence of ischemia. Rare PAC with exercise. 2) No angina during the study. 3) Minimally reduced exercise tolerance (12.8 METs, WIL +9%). Target heart rate reached. Appropriate BP response to exercise. 4) No prior stress test available for comparison. Dictated by: Tre Landon MD on 09/02/2020 at 17:10 Approved by: Tre Landon MD on 09/02/2020 at 17:13
--- NOTE | 2020-09-02 15:54 | PM.TREADMILL ---
Cardiac Stress Test Report Referral & Results Date Patient Seen: 09/02/20 Time Patient Seen: 15:54 Requesting provider: Kevin Lawson Indication: atrial fibrillation Rest ECG: sinus rhythm Procedure Note: Standard aleksey protocol, 10:40, 11.6 METS Reduced exercise capacity, +9% Normal hemodynamic resposne to exercise No chest pain or anginal symptoms No st changes at peak exercise, no atrial fibrillation during exercise; no ectopy Impression: normal exercise stress test Please note: Actual ECG tracings can be found in the PACS system.
[2020-09-02 16:34] LABS: BUN Creatinine Ratio 21.5 (6-22); Blood Urea Nitrogen 17 mg/dL (9-20); Calcium 9.4 mg/dL (8.4-10.2); Carbon Dioxide 24 mmol/L (22-32); Chloride 102 mmol/L (98-107); Estimated Glomerular Filt Rate > 60.0 mL/min (>60); Glucose 96 mg/dL (70-100); HEMOLYSIS < 15 (0-50); Potassium 4.2 mmol/L (3.4-5.1); Sodium 137 mmol/L (137-145)
== END ==
PROVIDERS: PCP Internal Medicine; Referring Provider Internal Medicine; Visit Provider Internal Medicine Cardiovascular Disease
DX: I48.0 Paroxysmal atrial fibrillation (principal); I47.1 Supraventricular tachycardia
CPT/HCPCS: 36415; 80048; 93017

== ENCOUNTER → 2021-07-02 07:05 | Outpatient (CLI) | payer OTHER, SELFPAY ==
[2021-07-02 08:07] LABS: Add Manual Diff / Slide Review NO; Basophils Absolute Auto 100 /uL (0-100); Basophils Percent Auto 1.2 % (0-2); Eosinophils Absolute Auto 100 /uL (0-450); Eosinophils Percent Auto 2.3 % (2-4); Lymphocytes Absolute Auto 2100 /uL (1100-4500); Lymphocytes Percent Auto 34.6 % (25-40); Mean Corpuscular HGB Conc 33.4 % (30-36); Mean Corpuscular Hemoglobin 29.1 PG (26-34); Monocytes Absolute Auto 400 /uL (0-900); Monocytes Percent Auto 7.2 % (3-14); Neutrophils Absolute Auto 3300 /uL (1500-7000); Neutrophils Percent Auto 54.7 % (50-75); Platelet Count 276 X10^3/uL (150-400); Red Blood Cell Count 4.83 X10^6/uL (4.5-5.9); Red Cell Distribution Width 13.2 % (11.6-14.8); White Blood Cell Count 6.1 X10^3/uL (4.5-11.0)
[2021-07-02 08:24] LABS: Alanine Aminotransferase 62 IU/L (<50); Albumin 4.1 g/dL (3.5-5.0); Albumin Globulin Ratio 1.4 (1.0-2.8); Alkaline Phosphatase 51 U/L (38-126); Aspartate Aminotransferase 36 IU/L (17-59); BUN Creatinine Ratio 15.6 (6-22); Bilirubin Total 0.5 mg/dL (0.2-1.3); Blood Urea Nitrogen 12 mg/dL (9-20); Calcium 9.5 mg/dL (8.4-10.2); Carbon Dioxide 28 mmol/L (22-32); Chloride 105 mmol/L (98-107); Cholesterol 223 mg/dL (140-199); Estimated Glomerular Filt Rate > 60.0 mL/min (>60); Glucose 92 mg/dL (70-100); HDL Cholesterol 51 mg/dL (40-60); HEMOLYSIS < 15 (0-50); LDL Cholesterol Calculated 151 mg/dL (<100); Potassium 4.1 mmol/L (3.4-5.1); Sodium 138 mmol/L (137-145); Total Protein 7.1 g/dL (6.3-8.2); Triglycerides 106 mg/dL (35-150)
== END ==
PROVIDERS: PCP Internal Medicine; Referring Provider Internal Medicine; Visit Provider Internal Medicine
DX: I48.0 Paroxysmal atrial fibrillation (principal); Z79.01 Long term (current) use of anticoagulants; Z13.220 Encounter for screening for lipoid disorders
CPT/HCPCS: 36415; 80053; 80061; 85025

== ENCOUNTER → 2021-07-28 13:07 | Outpatient (CLI) | payer OTHER, SELFPAY ==
[2021-08-01 22:38] LABS: Percent Free Testosterone 3.71 % (1.50-4.20); Testosterone Free 15.23 ng/dL (5.00-21.00); Testosterone Total 410.4 ng/dL (264.0-916.0)
== END ==
PROVIDERS: PCP Internal Medicine; Referring Provider Internal Medicine; Visit Provider Internal Medicine
DX: F41.9 Anxiety disorder, unspecified (principal); F68.8 Other specified disorders of adult personality and behavior
CPT/HCPCS: 36415; 84402; 84403

== ENCOUNTER 2021-09-21 07:48 | Emergency (ER) | payer OTHER, SELFPAY ==
[2021-09-21 07:57] VITALS: BP 141/89; PULSE 94; RESP 18; O2SAT 97; BMI 28.8
--- NOTE | 2021-09-21 08:13 | DI.RAD.S_ITS ---
PROCEDURE: XR CHEST 1V INDICATIONS: Chest pain TECHNIQUE: One view of the chest was acquired. COMPARISON: [facility], CT, CT ANGIO CHEST, 09/09/2020, 9:35. [facility], CR, XR CHEST 1V, 08/18/2020, 17:26. FINDINGS: Surgical changes and devices: None. Lungs and pleura: On this semiupright portable chest examination, no large pneumothorax or large pleural effusions are seen. No focal infiltrates are seen. Low lung volumes are noted. This causes a crowded appearance to the lung markings and limits evaluation. Mediastinum: Mediastinal contours appear normal. Heart size is normal. Bones and chest wall: No suspicious bony lesions. Overlying soft tissues appear unremarkable. IMPRESSION: Limited portable chest examination, without a significant cardiopulmonary abnormality identified. Dictated by: Juan Jose Will M.D. on 09/21/2021 at 7:49 Approved by: Juan Jose Will M.D. on 09/21/2021 at 7:50
[2021-09-21 08:33] VITALS: PULSE 91; RESP 21; O2SAT 93
--- NOTE | 2021-09-21 08:56 | ED_ITS ---
HPI - Chest Pain General Chief Complaint: Chest Pain Stated Complaint: mild chest pain x12 hours Time Seen by Provider: 09/21/21 08:12 Source: patient Mode of arrival: Ambulatory Limitations: no limitations History of Present Illness HPI narrative: Patient is a 46-year-old male. Has had history of tachycardia with cardiac ablation is a. He is also less than 2 weeks post his 3rd COVID-19 booster shot. He comes to the emergency department today because last evening he started to have what he describes as mild left-sided chest discomfort. He was concerned potentially about pericarditis/myocarditis. He has the ability to perform EKGs at home. He states that his heart rate was always less than 100 except for 1 time in the shower when his heart rate was 110. Symptoms persisted throughout this morning so he thought he should come in to be evaluated. No shortness of breath. No radiation of the pain. Not worse with palpation or movement. Related Data Home Medications Medication Instructions Recorded Confirmed fluticasone furoate 27.5 1 spray NASAL DAILY 07/19/19 09/20/21 mcg/actuation nasal spray,suspension Previous Rx's Medication Instructions Recorded triamcinolone acetonide 0.1 % 1 applictn TOP DAILY #30 gram 12/30/19 topical ointment azelastine 137 mcg (0.1 %) nasal 1 spray NASAL BID #90 ml 07/03/20 spray aerosol beclomethasone dipropionate 80 2 inhalation INHALATION BID #31.8 07/03/20 mcg/actuation HFA breath activated gram aerosol (Qvar RediHaler) albuterol sulfate 90 mcg/actuation 1 - 2 puff INHALATION Q4-6H PRN 09/17/20 aerosol inhaler (Proventil HFA) #8.5 gram lorazepam 0.5 mg tablet 0.5 mg PO BID PRN #20 tab 09/20/21 metoprolol tartrate 25 mg tablet 25 mg PO TID PRN #30 tab 09/20/21 Allergies Allergy/AdvReac Type Severity Reaction Status Date / Time flecainide Allergy Severe Hives Verified 09/20/21 16:30 Review of Systems Constitutional Constitutional: Reports system reviewed and no additional complaints, except as documented Cardiovascular Cardiovascular: Reports as per HPI and Reports system reviewed and no additional complaints, except as documented Respiratory Respiratory: Reports as per HPI and Reports system reviewed and no additional complaints, except as documented Gastrointestinal Gastrointestinal: Reports system reviewed and no additional complaints, except as documented Neurologic Neurologic: Reports system reviewed and no additional complaints, except as documented Hematologic/Lymphatic On Anticoagulants: No Patient History Medical History Anxiety Asthma Eczema (~2015) nursing home current use of anticoagulant Paroxysmal A-fib (~2017) Sleep apnea (~2017) Unspecified asthma, uncomplicated Surgical History (Updated 07/05/21 @ 15:46 by Viktor Rey MD) Anesthesia History of foot surgery (~2010) History of radiofrequency ablation (RFA) procedure for cardiac arrhythmia (~10/2020) S/P appy Family History Grandfather Cancer Grandfather Myocardial infarct History of heart disease Grandmother No problems noted. Family/Other No problems noted. Social History Smoking Status: Never smoker Smoking Status: Never smoker Substance Use Type: does not use Exam Initial Vital Signs Initial Vital Signs: Vital Signs Pulse Rate 94 H 09/21/21 07:57 Respiratory Rate 18 09/21/21 07:57 Blood Pressure 141/89 H 09/21/21 07:57 Pulse Oximetry 97 09/21/21 07:57 Const General: cooperative and comfortable HENMT Head: normal to inspection and normocephalic Resp Effort & Inspection: normal respiratory effort Auscultation: clear to auscultation bilaterally and no wheezes Cardio Rate: regular rate Rhythm: regular rhythm Heart Sounds: no murmurs GI Inspection: normal to inspection Skin General: no rashes or lesions noted Neuro General: patient alert, patient awake and moves all extremities Extrem General: normal to inspection and capillary refill normal Psych Appearance: grossly normal and well kempt Course Orders Ordered: ED Orders 09/21/21 08:13 XR chest 1V Stat 09/21/21 08:18 Complete Blood Count AUTO DIFF Stat Comprehensive Metabolic Panel Stat Lipase Stat Troponin & CK Cardiac Panel Stat Vital Signs Vital signs: Vital Signs - 8 hr 09/21/21 07:57 Pulse Rate 94 H Respiratory Rate 18 Blood Pressure 141/89 H Pulse Oximetry 97 MDM - Chest Pain Lab Data Result diagrams: 09/21/21 08:18 09/21/21 08:18 Labs: Lab Results 09/21/21 09/21/21 Range/Units 08:18 08:18 WBC 6.4 (4.5-11.0) X10^3/uL RBC 5.10 (4.5-5.9) X10^6/uL Hgb 14.9 (13.5-17.5) g/dL Hct 44.1 (41-53) % MCV 86.6 (80-100) fL MCH 29.2 (26-34) PG MCHC 33.7 (30-36) % RDW 13.6 (11.6-14.8) % Plt Count 293 (150-400) X10^3/uL Neut % (Auto) 61.7 (50-75) % Lymph % (Auto) 29.9 (25-40) % [place] % (Auto) 5.8 (3-14) % Eos % (Auto) 1.4 L (2-4) % Baso % (Auto) 1.2 (0-2) % Neut # (Auto) 3900 (9036-0070) /uL Lymph # (Auto) 1900 (1543-8788) /uL [place] # (Auto) 400 (0-900) /uL Eos # (Auto) 100 (0-450) /uL Baso # (Auto) 100 (0-100) /uL Sodium 138 (137-145) mmol/L Potassium 3.5 (3.4-5.1) mmol/L Chloride 101 (98-107) mmol/L Carbon Dioxide 27 (22-32) mmol/L BUN 14 (9-20) mg/dL Creatinine 0.91 (0.66-1.25) mg/dL Estimated GFR > 60.0 (>60) mL/min BUN/Creatinine Ratio 15.4 (6-22) Glucose 103 H (70-100) mg/dL Calcium 9.6 (8.4-10.2) mg/dL Total Bilirubin 0.7 (0.2-1.3) mg/dL AST 32 (17-59) IU/L ALT 44 (<50) IU/L Alkaline Phosphatase 56 (38-126) U/L Total Creatine Kinase 130 (55-170) U/L CK-MB (CK-2) 0.33 (<2.37) ng/mL CK-MB (CK-2) Rel Index 0.3 L (1.5-5.0) % Troponin I < 0.012 (0.01-0.034) ng/mL Total Protein 7.8 (6.3-8.2) g/dL Albumin 4.7 (3.5-5.0) g/dL Globulin 3.1 (1.7-4.1) g/dL Albumin/Globulin Ratio 1.5 (1.0-2.8) Lipase 60 (23-300) U/L ECG Data Attestation: I personally reviewed and interpreted this ECG as follows: Interpretation: Sinus rhythm Ventricular rate 100 Normal axis Normal QRS Normal QTC No ST T wave changes MDM Narrative Medical decision making narrative: Patient's EKG is unremarkable. Has had no ectopy here in the ER. Is afebrile. Troponin is negative. No indications of pericarditis on the EKG. No leukocytosis. Patient has had pain for the past 12 hours. Low suspicion for ACS. Provided reassurance to the patient. He has a follow-up with Cardiology already scheduled for the next couple weeks. He was given return precautions and follow-up instructions. He expressed understanding and agreement. Discharge Plan Departure Patient Disposition: Home Clinical Impression: Atypical chest pain Instructions: DI for Atypical Chest Pain Activity Restrictions/Additional Instructions: Continue to take all of your medications as directed and contact your primary doctor for follow-up. Keep all of your scheduled medical appointments. Return to the emergency department for any new or worsening symptoms. Prescriptions: No Action triamcinolone acetonide 0.1 % ointment 1 applictn TOP DAILY Qty: 30 2RF lorazepam 0.5 mg tablet 0.5 mg PO BID PRN (Reason: anxiety) Qty: 20 0RF metoprolol tartrate 25 mg tablet 25 mg PO TID PRN (Reason: tachycardia) Qty: 30 2RF fluticasone furoate 27.5 mcg/actuation spray,suspension 1 spray NASAL DAILY 0RF Qvar RediHaler 80 mcg/actuation HFA aerosol breath activated 2 inhalation INHALATION BID Qty: 31.8 3RF Rx Instructions: administer with spacer azelastine 137 mcg (0.1 %) aerosol,spray 1 spray NASAL BID Qty: 90 3RF albuterol sulfate [Proventil HFA] 90 mcg/actuation HFA aerosol inhaler 1 - 2 puff inhalation Q4-6H PRN (Reason: shortness of breath) Qty: 8.5 3RF Referrals: Viktor Rey MD [Primary Care Provider] -
[2021-09-21 09:00] VITALS: PULSE 83; RESP 14; O2SAT 92
[2021-09-21 09:02] LABS: Add Manual Diff / Slide Review NO; Basophils Absolute Auto 100 /uL (0-100); Basophils Percent Auto 1.2 % (0-2); Eosinophils Absolute Auto 100 /uL (0-450); Eosinophils Percent Auto 1.4 % (2-4); Hematocrit 44.1 % (41-53); Hemoglobin 14.9 g/dL (13.5-17.5); Lymphocytes Absolute Auto 1900 /uL (1100-4500); Lymphocytes Percent Auto 29.9 % (25-40); Mean Corpuscular HGB Conc 33.7 % (30-36); Mean Corpuscular Hemoglobin 29.2 PG (26-34); Mean Corpuscular Volume 86.6 fL (80-100); Monocytes Absolute Auto 400 /uL (0-900); Monocytes Percent Auto 5.8 % (3-14); Neutrophils Absolute Auto 3900 /uL (1500-7000); Neutrophils Percent Auto 61.7 % (50-75); Platelet Count 293 X10^3/uL (150-400); Red Cell Distribution Width 13.6 % (11.6-14.8); White Blood Cell Count 6.4 X10^3/uL (4.5-11.0)
[2021-09-21 09:15] LABS: Alanine Aminotransferase 44 IU/L (<50); Albumin 4.7 g/dL (3.5-5.0); Albumin Globulin Ratio 1.5 (1.0-2.8); Alkaline Phosphatase 56 U/L (38-126); Aspartate Aminotransferase 32 IU/L (17-59); BUN Creatinine Ratio 15.4 (6-22); Bilirubin Total 0.7 mg/dL (0.2-1.3); Blood Urea Nitrogen 14 mg/dL (9-20); Calcium 9.6 mg/dL (8.4-10.2); Carbon Dioxide 27 mmol/L (22-32); Chloride 101 mmol/L (98-107); Creatine Kinase 130 U/L (55-170); Estimated Glomerular Filt Rate > 60.0 mL/min (>60); Globulin 3.1 g/dL (1.7-4.1); Glucose 103 mg/dL (70-100); HEMOLYSIS < 15 (0-50); Lipase 60 U/L (23-300); Potassium 3.5 mmol/L (3.4-5.1); Sodium 138 mmol/L (137-145); Total Protein 7.8 g/dL (6.3-8.2)
[2021-09-21 09:26] LABS: Troponin I < 0.012 ng/mL (0.01-0.034)
[2021-09-21 09:30] VITALS: PULSE 83; RESP 18; O2SAT 93
[2021-09-21 09:31] LABS: CKMB % Relative Index 0.3 % (1.5-5.0); Creatine Kinase MB 0.33 ng/mL (<2.37)
[2021-09-21 09:57] VITALS: BP 106/68; PULSE 81; RESP 20; O2SAT 94
== END 2021-09-21 10:11 | disposition home or self-care (01) ==
PROVIDERS: Emergency Provider Emergency Medicine; PCP Internal Medicine
DX: R07.89 Other chest pain (principal)
CPT/HCPCS: 36415; 71045; 80053; 82550; 82553; 83690; 84484; 85025; 93005; 99283

== ENCOUNTER → 2022-08-23 13:50 | Outpatient (CLI) | payer OTHER, SELFPAY | PROVIDERS: PCP Internal Medicine; Referring Provider Otolaryngology; Visit Provider Otolaryngology | DX: Z01.818 Encounter for other preprocedural examination (principal); J34.2 Deviated nasal septum | CPT/HCPCS: 93005; 93010 ==

== ENCOUNTER → 2022-10-09 09:08 | Outpatient (CLI) | payer OTHER, SELFPAY ==
[2022-10-09 12:04] LABS: Influenza A - CEPHEID Flu A POSITIVE (NEGATIVE); Influenza B - CEPHEID Flu B NEGATIVE (NEGATIVE); Respiratory Syncytial Virus Negative (Negative)
[2022-10-09 12:06] LABS: COVID-19 CEPHEID 4-PLEX PCR Negative (Negative)
== END ==
PROVIDERS: PCP Internal Medicine; Visit Provider Physician Assistant
DX: R05.9 Cough, unspecified (principal)
CPT/HCPCS: 0241U

== ENCOUNTER → 2022-10-09 09:28 | Outpatient (CLI) | payer OTHER, SELFPAY ==
--- NOTE | 2022-10-09 09:30 | DI.RAD.S_ITS ---
PROCEDURE: XR CHEST 2V INDICATIONS: Asthma TECHNIQUE: 2 views of the chest were acquired. COMPARISON: [facility], CR, XR CHEST 1V, 09/21/2021, 8:21. [facility], CR, XR CHEST 1V, 08/18/2020, 17:26. [facility], CT, CT ANGIO CHEST, 09/09/2020, 9:35. FINDINGS: Surgical changes and devices: None. Lungs and pleura: An incomplete inspiratory result is noted, causing a crowded appearance to the lung markings. No focal infiltrates are seen. No pneumothorax or significant pleural effusions are seen. Mediastinum: Mediastinal contours are normal. Heart size is normal. Bones and chest wall: No suspicious bony abnormalities. Soft tissues appear unremarkable. IMPRESSION: Limited chest study, without an acute abnormality seen. No focal infiltrates are seen. Dictated by: Juan Jose Will M.D. on 10/09/2022 at 9:16 Approved by: Juan Jose Will M.D. on 10/09/2022 at 9:17
== END ==
PROVIDERS: PCP Internal Medicine; Referring Provider Physician Assistant; Visit Provider Physician Assistant
DX: J06.9 Acute upper respiratory infection, unspecified (principal); J45.901 Unspecified asthma with (acute) exacerbation; R05.9 Cough, unspecified
CPT/HCPCS: 0241U; 71046

== ENCOUNTER → 2022-11-30 07:57 | Outpatient (CLI) | payer OTHER, SELFPAY ==
[2022-11-30 09:10] LABS: Alanine Aminotransferase 51 IU/L (<50); Albumin 4.4 g/dL (3.5-5.0); Albumin Globulin Ratio 1.3 (1.0-2.8); Alkaline Phosphatase 64 U/L (38-126); Aspartate Aminotransferase 35 IU/L (17-59); BUN Creatinine Ratio 17.7 (6-22); Bilirubin Total 0.8 mg/dL (0.2-1.3); Blood Urea Nitrogen 14 mg/dL (9-20); Calcium 9.4 mg/dL (8.4-10.2); Carbon Dioxide 29 mmol/L (22-32); Chloride 102 mmol/L (98-107); Cholesterol 239 mg/dL (140-199); Estimated Glomerular Filt Rate > 60 mL/min (>60); Globulin 3.3 g/dL (1.7-4.1); Glucose 83 mg/dL (70-100); HDL Cholesterol 59 mg/dL (40-60); HEMOLYSIS < 15 (0-50); LDL Cholesterol Calculated 163 mg/dL (<100); Potassium 4.1 mmol/L (3.4-5.1); Sodium 137 mmol/L (137-145); Total Protein 7.7 g/dL (6.3-8.2); Triglycerides 84 mg/dL (35-150)
== END ==
PROVIDERS: PCP Internal Medicine; Referring Provider Internal Medicine; Visit Provider Internal Medicine
DX: F41.9 Anxiety disorder, unspecified (principal); I48.0 Paroxysmal atrial fibrillation; J45.20 Mild intermittent asthma, uncomplicated; Z13.1 Encounter for screening for diabetes mellitus; Z13.220 Encounter for screening for lipoid disorders; Z13.6 Encounter for screening for cardiovascular disorders
CPT/HCPCS: 36415; 80053; 80061